=== PATIENT | female | born 1995 | race Hispanic/Latino ===

== ENCOUNTER 2018-08-08 10:43 | Outpatient (CLI) | payer MEDICAID | END 2018-08-08 13:32 | disposition home or self-care (01) | LOC: LAB 10:43 → TRG 13:26 → LAB 13:32 | PROVIDERS: ATTEND Obstetrics & Gynecology | DX: O26.893 Other specified pregnancy related conditions, third trimester (principal); Z67.41 Type O blood, Rh negative; Z3A.32 32 weeks gestation of pregnancy | CPT/HCPCS: 86850; 86900; 86901; 96372; J2790 ==

== ENCOUNTER 2018-10-07 08:12 | Inpatient (IN) | payer MEDICAID ==
[2018-10-07] MEDS ORDERED: XYLOCAINE 2% INFILTRATI ONE (11:15)
[2018-10-07] MEDS ORDERED: STADOL IV PRN (11:15)
[2018-10-07] MEDS ORDERED: BRETHINE SUB-Q PRN (11:15)
[2018-10-07] MEDS ORDERED: BRETHINE IVP PRN (11:15)
[2018-10-07] MEDS ORDERED: ZOFRAN IV PRN ×2 (11:15→20:37)
[2018-10-07] MEDS ORDERED: PHENERGAN PO PRN ×2 (11:15→20:37)
[2018-10-07 11:32] LABS: Hematocrit 33.5 % (30.3-42.9); Hemoglobin 11.1 gm/dl (10.1-14.3); Mean Corpuscular HGB Conc 33 % (30-34); Mean Corpuscular Volume 86 fl (79-97); Platelet Count 262 K/mm3 (140-440); Red Blood Count 3.91 M/mm3 (3.65-5.03)
[2018-10-07] MEDS ORDERED: PITOCin/NS 20 UNIT/1000ML DRIP 20 UNITS/1,000 ML BAG IV SCH (12:00)
[2018-10-07] MEDS ORDERED: LACTATED RINGERS 1,000 ML IV SCH (12:00)
[2018-10-07] MEDS ORDERED: PITOCin/NS 30 UNIT/500ML 30 UNITS/500 ML BAG IV SCH (12:00)
[2018-10-07] MEDS ORDERED: NARCAN 2 MG/2 ML IV PRN (14:39)
--- NOTE | 2018-10-07 14:39 | Anesthesia Consultation ---
Anesthesia Consult and Med Hx Date of service: 10/07/18 - Airway Anesthetic Teeth Evaluation: Good ROM Head & Neck: Adequate Mental/Hyoid Distance: Adequate Mallampati Class: Class II Intubation Access Assessment: Probably Good - Pre-Operative Health Status ASA Pre-Surgery Classification: ASA2 Proposed Anesthetic Plan: Epidural, Spinal - Pulmonary Hx Asthma: No COPD: No Hx Pneumonia: No - Cardiovascular System Hx Hypertension: No - Central Nervous System Hx Seizures: No Hx Psychiatric Problems: No - Endocrine Hx Renal Disease: No Hx End Stage Renal Disease: No Hx Hypothyroidism: No Hx Hyperthyroidism: No - Hematic Hx Anemia: No Hx Sickle Cell Disease: No - Other Systems Hx Alcohol Use: No
[2018-10-07] MEDS ORDERED: fentaNYL-BUPIV 2 MCG/ML-0.125% 200 MCG/100 ML BAG EPIDURAL SCH (15:00)
[2018-10-07] MEDS ORDERED: XYLOCAINE MPF 2% ONE (16:11)
[2018-10-07] MEDS ORDERED: MINERAL OIL ONE (17:40)
--- NOTE | 2018-10-07 18:11 | History and Physical Report ---
History of Present Illness Date of examination: 10/07/18 Date of admission: 10/07/18 08:44 Chief complaint: I'm having contractions History of present illness: Pt is a 23 year old who presents at 40.5 weeks in active labor Past History - Obstetrical History : 1 Medications and Allergies Allergies Allergy/AdvReac Type Severity Reaction Status Date / Time No Known Allergies Allergy Unverified 08/08/18 13:29 Home Medications Medication Instructions Recorded Confirmed Last Taken Type HYDROcodone/APAP 5-325 [[place] 2 each PO Q6H PRN #20 tablet 10/08/18 Unknown Rx 5-325 mg TAB] Ibuprofen [Motrin 600 MG tab] 600 mg PO Q6HR #40 tablet 10/08/18 Unknown Rx Active Meds: Active Medications Butorphanol Tartrate (Stadol) 2 mg IV Q2H PRN PRN Reason: Pain , Severe (7-10) Ephedrine Sulfate (Ephedrine Sulfate) 10 mg IV Q2M PRN PRN Reason: Hypotension Ephedrine Sulfate (Ephedrine Sulfate) 10 mg IV Q2M PRN PRN Reason: Hypotension Lactated Ringer's (Lactated Ringers) 1,000 mls @ 125 mls/hr IV DIRECT OPHELIA Last Admin: 10/07/18 12:02 Dose: 999 mls/hr Documented by: Oxytocin/Sodium Chloride (Pitocin/Ns 20 Unit/1000ml Drip) 20 units in 1,000 mls @ 125 mls/hr IV DIRECT OPHELIA Oxytocin/Sodium Chloride (Pitocin/Ns 30 Unit/500ml) 30 units in 500 mls @ 1 ml s/hr IV TITR OPHELIA; Protocol Last Admin: 10/07/18 12:03 Dose: 1 milliunits/min, 1 mls/hr Documented by: Fentanyl/Bupivacaine/Sodium Chlor (Fentanyl-Bupiv 2 Mcg/Ml-0.125%) 200 mcg in 100 mls @ 12 mls/hr EPIDURAL TITR OPHELIA; Protocol Last Admin: 10/07/18 16:15 Dose: 12 mls/hr Documented by: Mineral Oil (Mineral Oil) 30 ml PO QHS PRN PRN Reason: Constipation Naloxone HCl (Narcan 2 Mg/2 Ml) 0.2 mg IV Q5M PRN PRN Reason: Respiratory sedation Ondansetron HCl (Zofran) 4 mg IV Q8H PRN PRN Reason: Nausea And Vomiting Last Admin: 10/07/18 16:40 Dose: 4 mg Documented by: Promethazine HCl (Phenergan) 25 mg PO Q6H PRN PRN Reason: Nausea And Vomiting Terbutaline Sulfate (Brethine) 0.25 mg SUB-Q ONCE PRN PRN Reason: Hyperstimulation/Hypertonicity Terbutaline Sulfate (Brethine) 0.25 mg IVP ONCE PRN PRN Reason: Hyperstimulation/Hypertonicity Review of Systems All systems: negative Genitourinary: leakage of fluid, contractions - Vital Signs Vital signs: Vital Signs Pulse BP 79 143/96 10/07/18 08:34 10/07/18 08:34 Temp Pulse Resp BP Pulse Ox 98.7 F 123 H 125/79 100 10/07/18 09:07 10/07/18 17:14 10/07/18 17:14 10/07/18 17:03 - Physical Exam Breasts: Cardiovascular: Regular rate, Normal S1, Normal S2 Lungs: Positive: Clear to auscultation, Normal air movement Abdomen: Positive: normal appearance, soft, normal bowel sounds. Negative: di stention, tenderness Vulva: both: normal Vagina: Positive: normal moisture. Negative: discharge Cervix: Negative: lesion, discharge Uterus: Positive: normal size, normal contour Adnexa: both: normal Anus/Rectum: Positive: normal perianal skin, heme negative. Negative: rectal mass, hemorrhoids Extremities: Deep Tendon Reflex Grade: Normal +2 - Obstetrical Cervical Dilatation: 5 Cervical Effacement Percentage: 90 station: -1 Uterine Contraction Pattern: Regular Uterine Tone Measurement Phase: Contraction Uterine Contraction Intensity: Moderate Results Result Diagrams: 10/08/18 04:34 Abnormal lab results 10/07/18 Range/Units 09:13 WBC 11.4 H (4.5-11.0) K/mm3 RDW 13.0 L (13.2-15.2) % All other labs normal. Assessment and Plan IUP at 40.2 weeks in active labor. ADmit to L&D. Augment if needed. Anticipate .
--- NOTE | 2018-10-07 18:12 | Procedure Note ---
OB Delivery Note - Delivery Date of Delivery: 10/07/18 Surgeon: ALCON HERNANDEZ Estimated blood loss: 200cc - Vaginal Delivery presentation: vertex Delivery position: OA Intrapartum events: none Delivery induction: none Delivery augmentation: pitocin Delivery monitor: external FHT, external uterine Route of delivery: Delivery placenta: spontaneous Delivery cord: nuchal cord Delivery laceration: 2nd degree Delivery repair: vicryl Anesthesia: epidural Delivery comments: Viable female delivered over intact perineum with 3vc. Loose nuchal easily reduced on perineum. placed on maternal abdomen. Cord clamped and cut when done pulsing. Placenta delivered spontaneously and intact with 3vc. 2nd degree laceration repaired with 2.0 vicryl. Pt tolerated procedure well. Excellent hemostasis. - Infant A at 1 minute: 8 at 5 minutes: 9 Infant Gender: Female (7 pounds 13 ounces)
[2018-10-07] MEDS ORDERED: MILK OF MAGNESIA PO PRN (20:37)
[2018-10-07] MEDS ORDERED: NORCO 5/325 PO PRN (20:37)
[2018-10-07] MEDS ORDERED: BENADRYL PO PRN (20:37)
[2018-10-07] MEDS ORDERED: SODIUM CHLORIDE FLUSH SYRINGE 10 ML IV NR (20:37)
[2018-10-07] MEDS ORDERED: TYLENOL PO PRN (20:37)
[2018-10-07] MEDS ORDERED: LANSINOH TP PRN (20:37)
[2018-10-07] MEDS ORDERED: DULCOLAX PR PRN (20:37)
[2018-10-07] MEDS ORDERED: PHENERGAN PR PRN (20:37)
[2018-10-07] MEDS ORDERED: TUCKS PAD TP PRN (20:37)
[2018-10-07] MEDS ORDERED: MINERAL OIL PO PRN (22:00)
[2018-10-08] MEDS: IBUPROFEN PO SCH ×4 (00:20→23:31)
[2018-10-08] MEDS: COLACE PO SCH ×3 (00:20→23:31)
[2018-10-08 04:52] LABS: Hematocrit 27.8 % (30.3-42.9); Hemoglobin 9.3 gm/dl (10.1-14.3)
[2018-10-08] MEDS: PRENATAL VITAMIN PO SCH (10:41)
[2018-10-08] MEDS: SENOKOT S PO SCH ×2 (10:42→23:31)
--- NOTE | 2018-10-08 17:17 | Progress Note ---
Assessment and Plan PPD 1 s/p . doing well. Plan for discharge this evening if baby able to go. Subjective - Subjective Date of service: 10/08/18 Interval history: Pt is a 23 year old who presents at 40.5 weeks in active labor Patient reports: appetite normal, voiding normally, pain well controlled, ambulating normally : doing well Objective - Vital Signs Latest vital signs: Vital Signs Temp Pulse Resp BP BP Pulse Ox 10/08/18 16:42 16 10/08/18 16:08 97.5 F L 79 18 148/93 99 10/08/18 12:04 98.6 F 75 18 132/86 98 10/08/18 10:44 16 10/08/18 08:21 98.8 F 87 18 133/91 97 10/08/18 05:40 98.3 F 78 20 142/79 97 10/08/18 01:20 98.6 F 82 20 138/82 98 10/07/18 20:59 98.9 F 95 H 18 142/86 98 10/07/18 19:22 83 153/84 10/07/18 19:00 98.6 F 10/07/18 18:53 103 H 131/94 10/07/18 18:14 99 H 135/63 Intake and Output 10/08/18 10/08/18 10/08/18 06:59 14:59 22:59 Intake Total 240 Output Total 800 Balance -560 Intake: Oral 240 Output: Urine 800 Void 800 Other: Total, Intake Amount 120 Total, Output Amount 400 # Voids Void 1 - Exam Breasts: Present: deferred Cardiovascular: Present: Regular rate, Normal S1, Normal S2 Lungs: Present: Clear to auscultation, Normal air movement Abdomen: Present: normal appearance, soft, normal bowel sounds Vulva: both: normal Extremities: Present: normal - Labs Labs: Abnormal lab results 10/08/18 Range/Units 04:34 Hgb 9.3 L (10.1-14.3) gm/dl Hct 27.8 L (30.3-42.9) %
--- NOTE | 2018-10-08 17:22 | Discharge Summary ---
Providers - Providers Date of Admission: 10/07/18 08:44 Date of discharge: 10/08/18 Attending physician: ALCON HERNANDEZ Primary care physician: ALCON HERNANDEZ Hospitalization Reason for admission: active labor Delivery: Laceration: 2nd degree complications: none, pelvic infection [place] baby: female Hospital course: unremarkable Condition at discharge: Good Disposition: DC-01 TO HOME OR SELFCARE Plan - Discharge Medications Prescriptions: Ibuprofen [Motrin 600 MG tab] 600 mg PO Q6HR #40 tablet HYDROcodone/APAP 5-325 [[place] 5-325 mg TAB] 2 each PO Q6H PRN #20 tablet PRN Reason: Pain, Moderate (4-6) - Provider Discharge Summary Activity: routine, no sex for 6 weeks, no heavy lifting 4 weeks, no strenuous exercise Diet: routine Instructions: routine Additional instructions: [] Smoking cessation referral if applicable(refer to patient education folder for contact #) [] Refer to [facility] Booklet Call your doctor immediately for: * Fever > 100.5 * Heavy vaginal bleeding ( >1 pad per hour) * Severe persistent headache * Shortness of breath * Reddened, hot, painful area to leg or breast * Drainage or odor from incision. * Keep incision clean and dry at all times and follow doctor's instructions regarding bathing/showering - Follow up plan Follow up: ALCON HERNANDEZ MD [Primary Care Provider] - 6 Weeks
[2018-10-09] MEDS: IBUPROFEN PO SCH ×2 (05:41→11:37)
[2018-10-09] MEDS: SENOKOT S PO SCH (10:10)
[2018-10-09] MEDS: PRENATAL VITAMIN PO SCH (10:10)
[2018-10-09] MEDS: COLACE PO SCH (11:37)
[2018-10-09 17:27] VITALS: BP 137/79
== END 2018-10-09 18:48 | disposition home or self-care (01) | DRG 774 ==
LOC: TRG 08:12 → LD 08:44 → TRG 08:44 → OB 19:45
PROVIDERS: ADMIT Obstetrics & Gynecology; ATTEND Obstetrics & Gynecology
PROC: 3E0R3BZ Introduction of Anesthetic Agent into Spinal Canal, Percutaneous Approach (ICD-10-PCS; principal; 2018-10-07)
PROC: 00HU33Z Insertion of Infusion Device into Spinal Canal, Percutaneous Approach (ICD-10-PCS; 2018-10-07)
PROC: 10E0XZZ Delivery of Products of Conception, External Approach (ICD-10-PCS; 2018-10-07)
PROC: 0KQM0ZZ Repair Perineum Muscle, Open Approach (ICD-10-PCS; 2018-10-07)
DX: O69.81X0 Labor and delivery complicated by cord around neck, without compression, not applicable or unspecified (principal); O86.89 Other specified puerperal infections; Z37.0 Single live birth; O70.1 Second degree perineal laceration during delivery; Z3A.40 40 weeks gestation of pregnancy
CPT/HCPCS: 36415; 85014; 85018; 85027; 85461; 86592; 86850; 86870; 86900; 86901; G0378; J2405; J2590; J7120